=== PATIENT | female | born 1935 | race Caucasian/White ===

== ENCOUNTER → 2017-03-27 | Outpatient (REF) | payer MEDICARE, OTHER ==
[~2017-03-27] MED LIST: ALEN70SO PO; AMLO10TA82 PO; CPR500T PO; GLIM4TAB PO; GUAN2TAB PO; HCTZ12.5T PO; HYDR-3702 PO; LEVO25TA2 PO; LEVO50TA PO; LSNP20T PO; METF1000 PO; METO200T32 PO; PIOG15TA3 PO; SMV20T PO
[2017-03-27 12:31] LABS: ALBUMIN 4.7 g/dL (3.4-5.0); ANION GAP 18.4 MEQ/L (3-15); CALCULATED IONIZED CALCIUM 4.2 mg/dL (3.8-4.6)
== END ==
LOC: LAB 11:31
PROVIDERS: ATTEND Family Medicine
DX: E78.4 Other hyperlipidemia (principal); E11.9 Type 2 diabetes mellitus without complications
CPT/HCPCS: 80053; 80061; 83036